=== PATIENT | female | born 1985 | race African-American/Black ===

== ENCOUNTER 2016-07-12 20:54 | Inpatient (IN) | payer MEDICARE ==
[~2016-07-12] VITALS: Ht 170.2 cm; Wt 56.4 kg
[~2016-07-12 20:54] MED LIST: ARIP30 PO; HALO10 PO; TRIH5 PO
[2016-07-12 20:55] VITALS: BP 130/72; PULSE 104; RESP 16; TEMP 97.9; O2SAT 99
[2016-07-12 23:45] LABS: AUTOMATED NEUTROPHIL # 6.1 TH/MM3 (1.8-7.7); BASOPHIL # 0.1 TH/MM3 (0-0.2); BASOPHIL % 0.6 % (0.0-2.0); EOSINOPHIL # 0.1 TH/MM3 (0-0.4); EOSINOPHIL % 1.3 % (0.0-4.0); HEMATOCRIT 41.4 % (35.0-46.0); HEMO FLAGS DIFF FINAL; LYMPH % 18.1 % (9.0-44.0); LYMPHOCYTE # 1.6 TH/MM3 (1.0-4.8); MEAN CELL VOLUME 86.9 FL (80.0-100.0); MEAN CORPUSCULAR HEMOGLOBIN 28.5 PG (27.0-34.0); MEAN CORPUSCULAR HGB CONC 32.8 % (32.0-36.0); MONO % 10.7 % (0.0-8.0); NEUT % 69.3 % (16.0-70.0); PLATELET COUNT 288 TH/MM3 (150-450); RED BLOOD COUNT 4.76 MIL/MM3 (4.00-5.30); RED CELL DISTRIBUTION WIDTH 13.4 % (11.6-17.2); WHITE BLOOD COUNT 8.9 TH/MM3 (4.0-11.0)
--- NOTE | 2016-07-12 23:53 | PD ---
HPI Chief Complaint: Psychiatric Symptoms Time Seen by Provider: 23:47 Travel History International Travel<30 days: No Contact w/Intl Traveler<30days: No Traveled to known affect area: No History of Present Illness HPI 31-year-old black female presents to emergency department on a voluntary basis for psychological evaluation. Per the nursing staff family member brought the patient in because they're concerned that she is decompensating. She has a long -standing history of schizophrenia. The family was concerned because she was talking to her parents in the living room who have been for some time now. The patient has been more agitated and combative at home. The patient here states that she is compliant with her medications. She denies any medical complaints. She is a poor historian and a good history is unobtainable. Patient denies any suicidal homicidal ideation. She denies any drugs or toxic ingestions. The patient states that she has had hallucinations in the past but she is not having any currently. PFSH Past Medical History Bipolar Disorder: Yes Cardiovascular Problems: No (PER BROTHER) Diminished Hearing: No Gastrointestinal Disorders: No (PER BROTHER) Genitourinary: No (PER BROTHER ) Musculoskeletal: No (PER BROTHER) Neurologic: No (PER BROTHER) Reproductive: No (PER BROTHER) Respiratory: No (PER BROTHER) Schizophrenia: Yes Tetanus Vaccination: Unknown : 0 Para: 0 Past Surgical History Surgical History: Unable to Obtain Other Surgery: No (PER BROTHER) Social History Alcohol Use: No Tobacco Use: No Substance Use: No Allergies-Medications (Allergen,Severity, Reaction): Coded Allergies: No Known Allergies (Verified , 07/12/16) Reported Meds & Prescriptions Reported Meds & Active Scripts Active Reported Haldol (Haloperidol) 10 Mg Tab 10 Mg PO BID Abilify (Aripiprazole) 30 Mg Tab 30 Mg PO HS Artane 5 Mg Tab (Trihexyphenidyl Hcl) 5 Mg Tab 5 Mg PO BID Review of Systems ROS Limitations: Poor Historian Except as stated in HPI: all other systems reviewed are Neg Psychiatric: Positive: Disorder of Thought, No: Anxiety, Depression, Suicidal Ideations, Mood Disorder, Substance Abuse, Homicidal Ideation Physical Exam Narrative GENERAL: Well-nourished, well-developed patient. SKIN: Warm and dry. HEAD: Normocephalic and atraumatic. EYES: No scleral icterus. No injection or drainage. ENT: No nasal drainage noted. Mucous membranes pink. Airway patent. NECK: Supple, trachea midline. Moves head freely without obvious discomfort. CARDIOVASCULAR: Regular rate and rhythm without murmurs, gallops, or rubs. RESPIRATORY: Breath sounds equal bilaterally. No accessory muscle use. GASTROINTESTINAL: Abdomen soft, non-tender, nondistended. EXTREMITIES: No cyanosis or edema. BACK: Nontender without obvious deformity. No CVA tenderness. NEURO: Patient is alert and oriented. no sensorimotor deficits. Nonfocal. Somewhat slurred and mumbled speech. PSYCH: The patient responds slowly. Her speech is somewhat slurred. The patient does appear to be responding to some internal stimuli. Impaired judgment. Data Data Last Documented VS Vital Signs Date Time Temp Pulse Resp B/P Pulse Ox O2 Delivery O2 Flow Rate FiO2 07/12/16 20:55 97.9 104 16 130/72 99 Orders Complete Blood Count With Diff (07/12/16 22:55) Comprehensive Metabolic Panel (07/12/16 22:55) Ed Urine Pregnancytest Poc (07/12/16 22:55) Psych Screen (07/12/16 22:55) Drug Screen, Random Urine (07/12/16 22:55) Alcohol (Ethanol) (07/12/16 22:55) Salicylates (Aspirin) (07/12/16 22:55) Tylenol (Acetaminophen) (07/12/16 22:55) Labs Laboratory Tests Test 07/12/16 23:20 White Blood Count 8.9 TH/MM3 Red Blood Count 4.76 MIL/MM3 Hemoglobin 13.6 GM/DL Hematocrit 41.4 % Mean Corpuscular Volume 86.9 FL Mean Corpuscular Hemoglobin 28.5 PG Mean Corpuscular Hemoglobin 32.8 % Concent Red Cell Distribution Width 13.4 % Platelet Count 288 TH/MM3 Mean Platelet Volume 9.3 FL Neutrophils (%) (Auto) 69.3 % Lymphocytes (%) (Auto) 18.1 % Monocytes (%) (Auto) 10.7 % Eosinophils (%) (Auto) 1.3 % Basophils (%) (Auto) 0.6 % Neutrophils # (Auto) 6.1 TH/MM3 Lymphocytes # (Auto) 1.6 TH/MM3 Monocytes # (Auto) 0.9 TH/MM3 Eosinophils # (Auto) 0.1 TH/MM3 Basophils # (Auto) 0.1 TH/MM3 CBC Comment DIFF FINAL Differential Comment MDM Medical Decision Making Medical Screen Exam Complete: Yes Emergency Medical Condition: Yes Medical Record Reviewed: Yes Differential Diagnosis MDM: High Differential diagnoses: Schizophrenia, schizoaffective disorder, bipolar, anxiety, depression, adjustment reaction, mood disorder NOS, ODD, depressive disorder NOS, dementia, dementia with agitation, psychosis NOS, substance induced mood disorder, intermittent explosive disorder, Asperger syndrome, infection,electrolyte abnormality, malingering. Narrative Course Mental health screening discussed with the patient. Psychiatric screen ordered. The patient is been medically cleared. This schizophrenia Diagnosis Primary Impression: Schizophrenia Condition: Stable [place] Jul 12, 2016 23:52
[2016-07-12 23:55] LABS: ANION GAP 9 MEQ/L (5-15)
[2016-07-12] MEDS ORDERED: TRIH5TAB2 PO (23:55)
[2016-07-12] MEDS ORDERED: HALO10TA PO (23:55)
[2016-07-12] MEDS ORDERED: ABIL30TA2 PO (23:55)
[2016-07-12 23:58] LABS: ALKALINE PHOSPHATASE 95 U/L (45-117); ALT (GPT) 20 U/L (10-53); AST (GOT) 15 U/L (15-37); BLOOD UREA NITROGEN 16 MG/DL (7-18); CHLORIDE 103 MEQ/L (98-107); GLOMERULAR FILTRATION RATE 64 ML/MIN (>89); POTASSIUM 3.7 MEQ/L (3.5-5.1); SODIUM (NA) 140 MEQ/L (136-145); TOTAL BILIRUBIN ADULT 0.2 MG/DL (0.2-1.0)
[2016-07-13 00:01] LABS: ACETAMINOPHEN LESS THAN 2.0 MCG/ML (10.0-30.0)
[2016-07-13 00:57] LABS: AMPHETAMINE, URINE NEG (NEG); BARBITURATES, URINE NEG (NEG); COCAINE, URINE NEG (NEG)
[2016-07-13] MEDS ORDERED: LORazepam 2 MG/ML VIAL - age > 65 yrs IM PRN (02:00)
[2016-07-13] MEDS ORDERED: ALUMINUM/MAGNESIUM/SIMETH 30 ML CUP PO PRN ×2 (02:00→14:00)
[2016-07-13] MEDS ORDERED: diphenhydrAMINE HCL 50 MG CAP - HS PRN PO (02:00)
[2016-07-13] MEDS ORDERED: hydrOXYzine HCL 50 MG TAB PO PRN (02:00)
[2016-07-13] MEDS ORDERED: ACETAMINOPHEN 325 MG TAB PO PRN ×2 (02:00→14:00)
[2016-07-13] MEDS ORDERED: diphenhydrAMINE HCL 50 MG/ML VIAL - HS PRN IM (02:00)
[2016-07-13] MEDS ORDERED: MAGNESIUM HYDROXIDE SUSP 30 ML CUP PO PRN ×2 (02:00→14:00)
[2016-07-13] MEDS ORDERED: LORazepam 0.5 MG TAB age > 65 yrs PO PRN (02:00)
[2016-07-13 02:23] VITALS: BP 106/57; PULSE 104; RESP 18; O2SAT 97
[2016-07-13 03:30] VITALS: BP 119/58; PULSE 112; RESP 16; TEMP 98.2; O2SAT 99
[2016-07-13 06:07] VITALS: BP 119/58; PULSE 112; RESP 16; TEMP 98.2; O2SAT 99
[2016-07-13] MEDS: HALOPERIDOL 10 MG TAB PO SCH ×2 (08:46→21:00)
[2016-07-13] MEDS: TRIHEXYPHENIDYL HCL 5 MG TAB PO SCH ×2 (09:05→21:56)
--- NOTE | 2016-07-13 14:32 | HHI.HP ---
Provisional Diagnosis Admission Date Jul 13, 2016 at 01:39 [place] I. 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 Express and informed consent means consent voluntarily given in writing, by a competent person, after sufficient explanation and disclosure of the subject matter involved to enable the person to make a knowing and willful decision without any element of force, fraud, deceit, duress, or other form of constraint or coercion. This person is 18 years of age or older, is not now known to be incompetent to consent to treatment with a guardian advocate, and does not have a health care surrogate or proxy currently making medical treatment decisions. I have found this person to be one of the following: [] Competent to provide express and informed consent, as defined above, for voluntary admission to this facility and is competent to provide express and informed consent for treatment. He/she has the consistent capacity to make well reasoned, willful, and knowing decisions concerning his or her medical or mental health treatment. The person fully and consistently understands the purpose of the admission for examination/placement and is fully capable of personally exercising all rights assured [place] [x] Incompetent to provide express and informed consent to voluntary admission, and this is incompetent to provide express and informed consent to treatment. The person must be transferred to involuntary status and a petition for a guardian advocate filed with the Circuit Court. [] Refusing to provide express and informed consent to voluntary admission but is competent to provide express and informed consent for treatment. The person must be discharged or transferred to involuntary status. Form shall be completed within 24 hours of a person's arrival at the receiving facility and filed in the clinical record of each person: 1. Admitted on a voluntary basis 2. Permitted to provide express and informed consent to his/her own treatment 3. Allowed to transfer from involuntary to voluntary status 4. Prior to permitting a person to consent to his or her own treatment after having been previously found incompetent to consent to treatment. History of Present Illness Capacity: Lacks Capacity HPI Patient is a 31-year-old Afro-Panamanian female comes her voluntarily being brought in by her family with a history of showing increased disorganization noncompliance medication talking to her mother and father being more aggressive from a house. Patient seen screened in the ED urine toxicology negative. Prior to my seeing patient she was admitted on a voluntary basis. However patient seen by me with nurse Catalan. Patient is a long history of contact with the psychiatric unit here. She is been clearing of diagnosis of schizophrenia and mental retardation. At the present time patient was pacing in her room with nurse Alayna and myself present. Markedly disorganized anxious attitude initially responses being markedly delayed brief concrete childlike. She is stating that she is showing multiple voices in her head causing a significant anxiety. When they attempted to speak about her mood and asked her sister is suicidal she started crying nodding her head. It appears she is still grieving the of her grandmother with of the past few years. She states she has drunk beer in the past but no hard liquor she denies other drug use. She states she's never been abused in the past. In any event at the present time patient does meet criteria for involuntary psychiatric hospitalization under the [place] act. Also feel she does not have capacity to make decisions concerning the admission or concerning her treatment thus I'll ask for healthcare surrogate and a guardian advocate nursing staff attempted to call patient's home [place] no response yet from her brother. Will continue medications to the med reconciliation Review of Systems ROS Limitations: Clinical Condition, Other (patient intellectually challenged) Past Psych History Psychological trauma history Patient denies Violence risk - others (6 mos) Patient is been progressive and angry towards brother Violence risk - self (6 mos) Patient is vague suicidal ideation perhaps related to the increased auditory hallucinations and her sadness over the [place] grandmother Substance Abuse History Drugs/Alcohol past 12 months His vague history of perhaps some use of beer Past Family Social History Coded Allergies: No Known Allergies (Verified , 07/12/16) Past Medical History Patient medically cleared ED Reported Medications Trihexyphenidyl 5 Mg Tab5 Mg PO BID #60 TAB Ref 0 07/12/16 Haloperidol 10 Mg Tab10 Mg PO BID Ref 0 07/12/16 Aripiprazole (Abilify)30 Mg Tab30 Mg PO HS #30 TAB Ref 0 07/12/16 Discontinued Reported Medications Haloperidol (Haldol)10 Mg Tab10 Mg PO BID #60 TAB 07/06/13 Aripiprazole (Abilify)30 Mg Tab30 Mg PO HS #30 TAB 07/06/13 Trihexyphenidyl Hcl (Artane 5 Mg Tab)5 Mg Tab5 Mg PO BID #60 TAB 07/06/13 Current Medications Medications (Trade) Dose Ordered Sig/Daquan Route Start Time Stop Time Status Last Admin (Ativan) 0.5 mg Q12H PRN PO 07/13/16 02:00 (Ativan Inj) 0.5 mg Q12H PRN IM 07/13/16 02:00 (Atarax) 50 mg Q6H PRN PO 07/13/16 02:00 (Benadryl) 50 mg HS PRN PO 07/13/16 02:00 (Benadryl Inj) 50 mg HS PRN IM 07/13/16 02:00 (Tylenol) 650 mg Q4H PRN PO 07/13/16 02:00 (Milk Of Magnesia Liq) 30 ml DAILY PRN PO 07/13/16 02:00 (Mag-Al Plus Susp Liq) 30 ml Q6H PRN PO 07/13/16 02:00 (Abilify) 30 mg HS PO 07/13/16 21:00 (Haldol) 10 mg BID PO 07/13/16 09:00 (Artane) 5 mg BID PO 07/13/16 09:00 07/13/16 09:05 Family History Both parents are , patient lives with brother unknown if there is history of mental health history or addiction history in family Social History Patient lives with brother Patient's Strengths (min. 2) Patient able to access healthcare calm cooperative Physical Exam Patient seen screened in ED exam reviewed and agreed with, vital signs blood pressure 119/58 pulse 112 respirations 16 Vital Signs Vital Signs Date Time Temp Pulse Resp B/P Pulse Ox O2 Delivery O2 Flow Rate FiO2 07/13/16 06:07 98.2 112 16 119/58 99 07/13/16 02:23 Room Air I/O 07/12/16 07/12/16 07/13/16 08:00 16:00 00:00 Intake Total 100 ml Balance 100 ml Mental Status Examination Alert anxious thin slender Afro-Panamanian female pacing her room nurse Alayna present with me throughout session. Patient markedly agitated tearful labile responses very brief childlike and disorganized complaining of increased auditory hallucinations Appearance Somewhat disheveled Speech: Hesitant, Slow, Stuttering Orientation: Person Memory: Impaired (describe) Thought Process: Other (markedly disorganized) Thought Content: Paranoid Hallucination Type: Auditory Attention and Concentration: Easily Distracted Suicidal Ideation: Yes Previous Suicide Attempts: No (unknown at this time) Homicidal Ideation: No Previous Homicide Attempts: No Insight: Poor Judgement: Poor Affect: Other (increase range and intensity) Mood: Sad, Anxious Motor Activity: Normal gait (pacing) Assessment & Plan Problem List: (1) 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 Will have counselor attempt to reach patient's brother Discharge Planning To be determined Request HC Surrog/Guard Advoc?: Yes Juvenal Mccallum MD Jul 13, 2016 14:32
[2016-07-13 17:19] VITALS: BP 101/67; PULSE 81; RESP 18; TEMP 98.6; O2SAT 98
[2016-07-13] MEDS ORDERED: HALOPERIDOL 10 MG TAB PO SCH (21:00)
[2016-07-13] MEDS ORDERED: ARIPiprazole 30 MG TAB PO SCH ×2 (21:00)
[2016-07-13] MEDS ORDERED: TRIHEXYPHENIDYL HCL 5 MG TAB PO SCH (21:00)
[2016-07-14 06:13] VITALS: BP 119/70; PULSE 80; RESP 18; TEMP 99.8; O2SAT 99
[2016-07-14 08:22] LABS: HDL CHOLESTEROL 74.9 MG/DL (40.0-60.0); LDL CHOLESTEROL 65 MG/DL (0-99)
[2016-07-14] MEDS: TRIHEXYPHENIDYL HCL 5 MG TAB PO SCH ×2 (08:42→20:12)
--- NOTE | 2016-07-14 11:04 | PD.CONS ---
Provisional Diagnosis Admission Date Jul 13, 2016 at 01:39 [place] I. 1. Schizophrenia, disorganized type [place] II. 1. Intellectual disability [place] V. GAF is 30 presently History of Present Illness Service Psychiatry Consult Requested By Dr. Mccallum Reason for Consult Second opinion Primary Care Physician No Primary Care Physician HPI From Dr. Mccallum's H&P: Patient is a 31-year-old Afro-[place] female comes her voluntarily being brought in by her family with a history of showing increased disorganization noncompliance medication talking to her mother and father being more aggressive from a house. Patient seen screened in the ED urine toxicology negative. Prior to my seeing patient she was admitted on a voluntary basis. However patient seen by me with nurse Catalan. Patient is a long history of contact with the psychiatric unit here. She is been clearing of diagnosis of schizophrenia and mental retardation. At the present time patient was pacing in her room with nurse Catalan and myself present. Markedly disorganized anxious attitude initially responses being markedly delayed brief concrete childlike. She is stating that she is showing multiple voices in her head causing a significant anxiety. When they attempted to speak about her mood and asked her sister is suicidal she started crying nodding her head. It appears she is still grieving the of her grandmother with of the past few years. She states she has drunk beer in the past but no hard liquor she denies other drug use. She states she's never been abused in the past. In any event at the present time patient does meet criteria for involuntary psychiatric hospitalization under the [place] act. Also feel she does not have capacity to make decisions concerning the admission or concerning her treatment thus I'll ask for healthcare surrogate and a guardian advocate nursing staff attempted to call patient's home [place] no response yet from her brother. Will continue medications to the med reconciliation On my examination today: Patient seen and examined. Chart reviewed. Case d/w RN. On my examination today, patient presents as fairly disorganized. She is childlike, and I note that she carries an intellectual disability diagnosis. She says that she has come into the hospital for "fighting," but provides no more detail than this. She admits to [facility] and says "I been hearing it bad." She appears internally preoccupied. Mood is fair. She does not verbalize any SI or HI. Interview is somewhat limited, I suspect because of a combination of thought disorganization and intellectual disability. Past Psych history: Patient admits to a history of prior psychiatric hospitalizations, and I note she was last here in 05/2013. She denies a history of suicide attempts. Family History: Patient denies. Chem Dep History: Patient denies any abuse of drugs or alcohol. Social History: Patient reports that she lives alone. She has "1 year" of schooling. She is unmarried and has 1 son. She denies any or legal history. Review of Systems ROS Limitations: Poor Historian Other No reported physical complaints. Past Family Social History Coded Allergies: No Known Allergies (Verified , 07/12/16) Past Medical History See EMR Reported Medications Trihexyphenidyl 5 Mg Tab5 Mg PO BID #60 TAB Ref 0 07/12/16 Haloperidol 10 Mg Tab10 Mg PO BID Ref 0 07/12/16 Aripiprazole (Abilify)30 Mg Tab30 Mg PO HS #30 TAB Ref 0 07/12/16 Discontinued Reported Medications Haloperidol (Haldol)10 Mg Tab10 Mg PO BID #60 TAB 07/06/13 Aripiprazole (Abilify)30 Mg Tab30 Mg PO HS #30 TAB 07/06/13 Trihexyphenidyl Hcl (Artane 5 Mg Tab)5 Mg Tab5 Mg PO BID #60 TAB 07/06/13 Current Medications Medications (Trade) Dose Ordered Sig/Daquan Route Start Time Stop Time Status Last Admin (Ativan) 0.5 mg Q12H PRN PO 07/13/16 02:00 Hold (Ativan Inj) 0.5 mg Q12H PRN IM 07/13/16 02:00 Hold (Atarax) 50 mg Q6H PRN PO 07/13/16 02:00 Hold (Benadryl) 50 mg HS PRN PO 07/13/16 02:00 Hold (Benadryl Inj) 50 mg HS PRN IM 07/13/16 02:00 Hold (Tylenol) 650 mg Q4H PRN PO 07/13/16 02:00 07/14/16 08:44 (Milk Of Magnesia Liq) 30 ml DAILY PRN PO 07/13/16 02:00 (Mag-Al Plus Susp Liq) 30 ml Q6H PRN PO 07/13/16 02:00 (Abilify) 30 mg HS PO 07/13/16 21:00 Hold (Haldol) 10 mg BID PO 07/13/16 09:00 Hold (Artane) 5 mg BID PO 07/13/16 09:00 07/14/16 08:42 Family History See above Social History See above Patient's Strengths (min. 2) In a monitored setting. Verbally fluent. Physical Exam PE completed by ED provider. On my examination today, patient is in no acute physical distress. No abnormal motor movements noted. Labs and vital signs reviewed: Vital Signs Vital Signs Date Time Temp Pulse Resp B/P Pulse Ox O2 Delivery O2 Flow Rate FiO2 07/14/16 06:13 99.8 80 18 119/70 99 07/13/16 02:23 Room Air Lab Results Item Value Date Time White Blood Count 8.9 TH/MM3 07/12/160 Hemoglobin 13.6 GM/DL 07/12/16 2320 Platelet Count 288 TH/MM3 07/12/16 2320 Sodium Level 140 MEQ/L 07/12/16 2320 Potassium Level 3.7 MEQ/L 07/12/16 2320 Chloride Level 103 MEQ/L 07/12/16 2320 Carbon Dioxide Level 28.0 MEQ/L 07/12/16 2320 Blood Urea Nitrogen 16 MG/DL 07/12/16 2320 Creatinine 1.19 MG/DL H 07/12/16 2320 Aspartate Amino Transf (AST/SGOT) 15 U/L 07/12/16 2320 Alanine Aminotransferase (ALT/SGPT) 20 U/L 07/12/16 2320 Alkaline Phosphatase 95 U/L 07/12/16 2320 Tox and EtOH negative. 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 Mccallum that the patient meets criteria for involuntary psychiatric hospitalization under the [place] Act. I have completed the second opinion paperwork. Further care as per Dr. Mccallum. Thank you very much for this consultation. Signing off. Request HC Surrog/Guard Advoc?: Yes Harshad Esparza MD Jul 14, 2016 11:04
--- NOTE | 2016-07-14 13:32 | HHI.PYPN ---
Subjective Remarks Patient discussed with treatment team including diagnosis medication management , discharge recommendations, and placement. Chart reviewed. Patient then seen in day room with nurse Evelyne. Patient continues to respond to internal stimuli though she states the voices are diminished is noticed by me that she continues to talk herself and also gesture. There is been significant difficulty at the present time also trying to reach patient's family to discuss this. If we are not able to reach them by tomorrow we need to perhaps a law enforcement to assure there safety and notification. So far we have been unable to gain permission to treat this lady. She continues to wander the unit somewhat disorganized, her responses still childlike acknowledging the auditory hallucinations. She also continues somewhat vigilant with her surroundings. Though she does denies suicidality at this time. Review of Systems ROS Limitations: Clinical Condition, Altered Mental Status Except as stated in HPI: all other systems reviewed are Neg Objective Alert: Yes [place]: Person Mood: Agitated, Anxious, Calm Affect: Labile, Restricted Memory Intact: Comment (very poor) Hallucinations: Auditory Delusions: Yes Delusion Type: Paranoid Suicidal: Ideation (denies though this still needs to be intrusive thoughts related to this by her auditory hallucinations) Homicidal: Ideation (denies) Insight/Judgement Very poor Labs Test 07/14/16 06:59 Triglycerides Level 38 MG/DL Cholesterol Level 147 MG/DL LDL Cholesterol 65 MG/DL HDL Cholesterol 74.9 MG/DL Cholesterol/HDL Ratio 1.96 RATIO Vitals/IOs Vital Signs Date Time Temp Pulse Resp B/P Pulse Ox O2 Delivery O2 Flow Rate FiO2 07/14/16 06:13 99.8 80 18 119/70 99 07/13/16 02:23 Room Air Assessment & Plan Problem List: (1) 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 Unable to start schedule medication until permission for healthcare surrogate/guardian advocate Justification for Cont. Inpt. At this time patient will decompensate then placed in the lower level of care Discharge Planning To be determined Request HC Surrog/Guard Advoc?: Yes Juvenal Mccallum MD Jul 14, 2016 13:32
[2016-07-14 17:13] LABS: HEMOGLOBIN A1a 1.1 %; HEMOGLOBIN A1b 0.9 %; HEMOGLOBIN Ao 85.3 %; HEMOGLOBIN F 1.1 %; HEMOGLOBIN LA1C 1.9 %; HEMOGLOBIN P3 3.8 %
[2016-07-14 19:27] VITALS: BP 124/73; PULSE 85; RESP 18; TEMP 98.2; O2SAT 97
[2016-07-15 06:09] VITALS: BP 107/68; PULSE 85; RESP 16; TEMP 97.7; O2SAT 96
[2016-07-15] MEDS: TRIHEXYPHENIDYL HCL 5 MG TAB PO SCH ×2 (09:41→20:14)
--- NOTE | 2016-07-15 13:22 | HHI.PYPN ---
Subjective Remarks Patient seen in day room with floor staff. Patient calm pleasant acknowledges continued auditory hallucinations though was somewhat less threatening nature though she still has vague suicidal ideation. Patient still remains sad though with slightly improved eye contact. It appears staff is continuing to have difficulty contacting patient's family. If they cannot contact them today with suggested they call law enforcement to make a wellness check on that address Review of Systems Except as stated in HPI: all other systems reviewed are Neg Objective Alert: Yes [place]: Person Mood: Agitated, Anxious, Calm Affect: Labile, Restricted Memory Intact: Comment (very poor) Hallucinations: Auditory Delusions: Yes Delusion Type: Paranoid Suicidal: Ideation (denies though this still needs to be intrusive thoughts related to this by her auditory hallucinations) Homicidal: Ideation (denies) Insight/Judgement Very poor Vitals/IOs Vital Signs Date Time Temp Pulse Resp B/P Pulse Ox O2 Delivery O2 Flow Rate FiO2 07/15/16 06:09 97.7 85 16 107/68 96 07/13/16 02:23 Room Air Intake and Output 07/14/16 07/14/16 07/15/16 08:00 16:00 00:00 Intake Total 240 ml 360 ml Balance 240 ml 360 ml Assessment & Plan Problem List: (1) 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 Will have counselor continue to attempt to contact patient's family, if they're unable to do that through today suggest counselor contact law enforcement to do wellness check at that location Justification for Cont. Inpt. At this time patient will decompensate then placed in the lower level of care Discharge Planning To be determined Request HC Surrog/Guard Advoc?: Yes Juvenal Mccallum MD Jul 15, 2016 13:22
[2016-07-15] MEDS ORDERED: LORazepam 2 MG/ML VIAL - age > 65 yrs IM PRN (15:45)
[2016-07-15] MEDS ORDERED: hydrOXYzine HCL 50 MG TAB PO PRN (15:45)
[2016-07-15] MEDS ORDERED: diphenhydrAMINE HCL 50 MG/ML VIAL - HS PRN IM (15:45)
[2016-07-15 18:55] VITALS: BP 104/73; PULSE 70; RESP 20; TEMP 97.8; O2SAT 100
[2016-07-15] MEDS: HALOPERIDOL 10 MG TAB PO SCH (20:14)
[2016-07-15] MEDS: ARIPiprazole 30 MG TAB PO SCH (20:14)
[2016-07-16 06:22] VITALS: BP 108/76; PULSE 72; RESP 18; TEMP 98; O2SAT 99
[2016-07-16] MEDS: HALOPERIDOL 10 MG TAB PO SCH ×2 (09:33→21:18)
[2016-07-16] MEDS: TRIHEXYPHENIDYL HCL 5 MG TAB PO SCH ×2 (09:33→21:18)
--- NOTE | 2016-07-16 13:25 | HHI.PYPN ---
Subjective Remarks Patient seen in dayroom with forceps, patient calm cooperative with me, continues to verify auditory hallucinations though somewhat softer, compliant medications, somewhat vague about continued suicidality though she does show some increase affect attempting to talk about her grandparents and parents. For now continue treatment Review of Systems Except as stated in HPI: all other systems reviewed are Neg Objective Alert: Yes [place]: Person Mood: Agitated, Anxious, Calm Affect: Labile, Restricted Memory Intact: Comment (very poor) Hallucinations: Auditory Delusions: Yes Delusion Type: Paranoid (somewhat decreased) Suicidal: Ideation (denies though this still needs to be intrusive thoughts related to this by her auditory hallucinations) Homicidal: Ideation (denies) Insight/Judgement Very poor Vitals/IOs Vital Signs Date Time Temp Pulse Resp B/P Pulse Ox O2 Delivery O2 Flow Rate FiO2 07/16/16 06:22 98.0 72 18 108/76 99 07/13/16 02:23 Room Air Intake and Output 07/15/16 07/15/16 07/16/16 08:00 16:00 00:00 Intake Total 360 ml Balance 360 ml Assessment & Plan Problem List: (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 Compliant medications. For now continue treatment Justification for Cont. Inpt. At this time patient will decompensate if placed in a lower level of care Discharge Planning To be determined Request HC Surrog/Guard Advoc?: Yes Juvenal Mccallum MD Jul 16, 2016 13:25
[2016-07-16 19:49] VITALS: BP 112/72; PULSE 108; RESP 18; TEMP 98.1; O2SAT 99
[2016-07-16] MEDS: ARIPiprazole 30 MG TAB PO SCH (21:00)
[2016-07-17] MEDS: HALOPERIDOL 10 MG TAB PO SCH ×2 (08:27→21:30)
[2016-07-17] MEDS: TRIHEXYPHENIDYL HCL 5 MG TAB PO SCH ×2 (08:27→21:30)
--- NOTE | 2016-07-17 14:57 | HHI.PYPN ---
Subjective Remarks Patient was seen and case discussed with nursing. Patient is disorganized and delayed. Not giving appropriate responses to questions. She is alert and oriented 2. Largely seclusive to self. She denies auditory hallucinations but she may not be understanding the questions. Denies suicidal ideations intent or plan Objective Alert: Yes [place]: Person, Place Mood: Anxious, Depressed Affect: Labile, Blunted Memory Intact: Comment (very poor) Hallucinations: Auditory (denies today) Delusions: Yes Delusion Type: Paranoid (somewhat decreased) Suicidal: Ideation (denies though this still needs to be intrusive thoughts related to this by her auditory hallucinations) Homicidal: Ideation (denies) Insight/Judgement Poor Vitals/IOs Vital Signs Date Time Temp Pulse Resp B/P Pulse Ox O2 Delivery O2 Flow Rate FiO2 07/16/16 19:49 98.1 108 18 112/72 99 Assessment & Plan Problem List: (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 Inpt. Patient will decompensate in a less restrictive setting Request HC Surrog/Guard Advoc?: Yes Damian Sim DO Jul 17, 2016 14:57
[2016-07-17 17:45] VITALS: BP 126/63; PULSE 73; RESP 17; TEMP 98; O2SAT 98
[2016-07-17] MEDS: ARIPiprazole 30 MG TAB PO SCH (21:30)
[2016-07-17] MEDS: diphenhydrAMINE HCL 50 MG CAP - HS PRN PO (23:11)
[2016-07-18 06:20] VITALS: BP 96/54; PULSE 82; RESP 20; TEMP 98.6; O2SAT 99
[2016-07-18] MEDS: TRIHEXYPHENIDYL HCL 5 MG TAB PO SCH ×2 (09:09→20:36)
[2016-07-18] MEDS: HALOPERIDOL 10 MG TAB PO SCH ×2 (09:09→20:36)
--- NOTE | 2016-07-18 13:40 | HHI.PYPN ---
Subjective Remarks Patient was seen and case discussed with nursing. Patient remains acutely psychotic. She was seen talking to self and responding to internal stimuli. During the interview she is paranoid looking side to side. When asked about her voices she becomes mute showing evidence of thought blocking. 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 Inpt. Patient will decompensate in a less restrictive setting Request HC Surrog/Guard Advoc?: Yes Damian Sim DO Jul 18, 2016 13:40
[2016-07-18 16:50] VITALS: BP 102/61; PULSE 70; RESP 18; TEMP 98.2; O2SAT 100
[2016-07-18] MEDS: ARIPiprazole 30 MG TAB PO SCH (20:36)
[2016-07-18] MEDS: LORazepam 0.5 MG TAB age > 65 yrs PO PRN (23:36)
[2016-07-18] MEDS: diphenhydrAMINE HCL 50 MG CAP - HS PRN PO (23:36)
[2016-07-19 05:26] VITALS: BP 107/65; PULSE 99; RESP 16; TEMP 99.6; O2SAT 99
[2016-07-19] MEDS: TRIHEXYPHENIDYL HCL 5 MG TAB PO SCH ×2 (09:21→21:37)
[2016-07-19] MEDS: HALOPERIDOL 10 MG TAB PO SCH ×2 (09:21→21:37)
--- NOTE | 2016-07-19 15:03 | HHI.PYPN ---
Subjective Remarks Patient discussed with treatment team, chart reviewed, patient seen and unit. Patient showing some slight increase affect less discussion of the voices, does denies suicidality at this time. Will arrange to meet with patient's sister tomorrow for all possible to discuss further treatment discharge plans Review of Systems Except as stated in HPI: all other systems reviewed are Neg Objective Alert: Yes [place]: Person, Place Mood: Anxious, Oppositional Affect: Labile, Flat Memory Intact: Comment (poor) Hallucinations: Auditory (diminished today) Delusions: Yes Delusion Type: Paranoid (somewhat diminished) Suicidal: Ideation (denies, poor historian) Homicidal: Ideation (denies) Insight/Judgement Poor Vitals/IOs Vital Signs Date Time Temp Pulse Resp B/P Pulse Ox O2 Delivery O2 Flow Rate FiO2 07/19/16 05:26 99.6 99 16 107/65 99 Intake and Output 07/18/16 07/18/16 07/19/16 08:00 16:00 00:00 Intake Total 240 ml 240 ml Balance 240 ml 240 ml Assessment & Plan Problem List: (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 Inpt. At this time patient will decompensate if placed on the lower level of care Discharge Planning To be determined will attempt to meet with patient's sister tomorrow Request HC Surrog/Guard Advoc?: Yes Juvenal Mccallum MD Jul 19, 2016 15:03
[2016-07-19 16:54] VITALS: BP 93/68; PULSE 80; RESP 18; TEMP 97.6; O2SAT 100
[2016-07-19] MEDS: LORazepam 0.5 MG TAB age > 65 yrs PO PRN (17:55)
[2016-07-19] MEDS: ARIPiprazole 30 MG TAB PO SCH (21:37)
[2016-07-20 06:28] VITALS: BP 100/55; PULSE 85; RESP 18; TEMP 97.5; O2SAT 99
[2016-07-20] MEDS: HALOPERIDOL 10 MG TAB PO SCH (09:46)
[2016-07-20] MEDS: TRIHEXYPHENIDYL HCL 5 MG TAB PO SCH (09:46)
[2016-07-20] MEDS ORDERED: HALO10TA PO (09:52)
[2016-07-20] MEDS ORDERED: HYDR50TA94 PO (09:52)
[2016-07-20] MEDS ORDERED: TRIH5TAB2 PO (09:52)
[2016-07-20] MEDS ORDERED: ABIL30TA2 PO (09:52)
--- NOTE | 2016-07-20 10:03 | HHI.DS ---
Psychiatry Discharge Summary Inpatient Psychiatric care?: Yes Advance Directive: No Reason Not Provided: Due to Patient Condition Mental Health AdvanceDirective: No Health Care Proxy: Yes Admission Admission Date Jul 13, 2016 at 01:39 Admission Diagnosis: (1) Moderate mental retardation ICD Code: F71 (2) Disorganized schizophrenia ICD Code: F20.[address] Mccallum's H&P: Patient is a 31-year-old Afro-[place] female comes her voluntarily being brought in by her family with a history of showing increased disorganization noncompliance medication talking to her mother and father being more aggressive from a house. Patient seen screened in the ED urine toxicology negative. Prior to my seeing patient she was admitted on a voluntary basis. However patient seen by me with nurse Alayna. Patient is a long history of contact with the psychiatric unit here. She is been clearing of diagnosis of schizophrenia and mental retardation. At the present time patient was pacing in her room with nurse Alayna and myself present. Markedly disorganized anxious attitude initially responses being markedly delayed brief concrete childlike. She is stating that she is showing multiple voices in her head causing a significant anxiety. When they attempted to speak about her mood and asked her sister is suicidal she started crying nodding her head. It appears she is still grieving the of her grandmother with of the past few years. She states she has drunk beer in the past but no hard liquor she denies other drug use. She states she's never been abused in the past. In any event at the present time patient does meet criteria for involuntary psychiatric hospitalization under the [place] act. Also feel she does not have capacity to make decisions concerning the admission or concerning her treatment thus I'll ask for healthcare surrogate and a guardian advocate nursing staff attempted to call patient's home [place] no response yet from her brother. Will continue medications to the med reconciliation On my examination today: Patient seen and examined. Chart reviewed. Case d/w RN. On my examination today, patient presents as fairly disorganized. She is childlike, and I note that she carries an intellectual disability diagnosis. She says that she has come into the hospital for "fighting," but provides no more detail than this. She admits to [facility] and says "I been hearing it bad." She appears internally preoccupied. Mood is fair. She does not verbalize any SI or HI. Interview is somewhat limited, I suspect because of a combination of thought disorganization and intellectual disability. Past Psych history: Patient admits to a history of prior psychiatric hospitalizations, and I note she was last here in 05/2013. She denies a history of suicide attempts. Family History: Patient denies. Chem Dep History: Patient denies any abuse of drugs or alcohol. Social History: Patient reports that she lives alone. She has "1 year" of schooling. She is unmarried and has 1 son. She denies any or legal history. Tobacco Use In Past 30 Days: Cognitive Impairment Alcohol Use: 2-4 Times Per Month Hospital Course Patient's hospital course was fairly uneventful. There Is Episodes of Childlike Behavior, Episodes of Being Somewhat Stubborn. However Patient Is Overall Compliant with Medications, No Significant Behavioral Problems. Her Vague Auditory Hallucinations That She Complained of Slowly Resolved. She Denied Suicidality Homicidality or Voices or Visions. We Did Meet Today and Patient's Brother and [id number]. They Feel She Is Doing Better and Are Willing to Take Her Home Today to Follow-Up Outpatient [facility]. They Have Both Visited with the Patient and They Feel She Is Ready Now to Come Home. Thus Patient Is to Be Discharged Today. Rx 1 month. Results Blood Pressure 100 / 55 Vital Signs Date Time Temp Pulse Resp B/P Pulse Ox O2 Delivery O2 Flow Rate FiO2 07/20/16 06:28 97.5 85 18 100/55 99 And toxicology negative blood alcohol level negative Summary of Procedures None done Pending results at discharge: No Medications # of Antipsychotic meds at D/C: 2 Appropriate >1 Antipsych meds?: 2 (would suggest that outpatient clinician consider weaning off Haldol gradually and continue with the Abilify) Approp Antipsych med options 1 - Minimum of three failed multiple trials of monotherapy. 2 - Documented plan to taper to monotherapy due to previous use of multiple meds OR cross-taper in progress at D/C. 3 - Documentation of augmentation of Clozapine. 4 - Justification other than those listed in allowable values 1-3, document here : Discharge Discharge Date: Jul 20, 2016 Discharge Diagnosis: (1) Moderate mental retardation Diagnosis: Secondary ICD Code: F71 (2) Disorganized schizophrenia Diagnosis: Principal ICD Code: F20.1 Mental Status Exam at Disch Alert [place]ro[place] female sitting quietly in her room, she has normal active, mood euthymic to slightly increased range and intensity of her affect speech rate and rhythm are somewhat increased at times somewhat tangential and childlike it appears she still has some responses to internal stimuli, denies any visual hallucinations, no delusions noted. Insight and judgment is poor cognition is somewhat impaired. She is oriented to person place Pt Condition on Discharge: Stable Discharge Disposition: Discharge Home Discharge Instructions Diet Instructions: As Tolerated, No Restrictions Activities you can perform: Regular-No Restrictions Scheduled Appointment: [place] Act Appointment Date: Jul 26, 2016 Appointment Time: 7:30am Discharge Time > 30 minutes Discharge/Advance Care Plan Health Problems: (1) Disorganized schizophrenia (2) Moderate mental retardation Goals to promote your health * To prevent worsening of your condition and complications * To maintain your health at the optimal level Directions to meet your goals Take your medications as prescribed Follow your dietary instruction Follow activity as directed Keep your appointments as scheduled Take your immunizations and boosters as scheduled If your symptoms worsen call your PCP, if no PCP go to Urgent Care Center or Emergency Room For 15/11 questions related to your inpatient stay or results of tests pending at discharge, please contact Dr. Juvenal Mccallum at Smoking is Dangerous to Your Health. Avoid second hand smoking Juvenal Mccallum MD Jul 20, 2016 10:03
== END 2016-07-20 12:25 | disposition home or self-care (01) | DRG 885 ==
LOC: NEPJ 20:54 → NEDA 07-13 01:39 → H260 07-13 03:29
PROVIDERS: ADMIT Psychiatry & Neurology Psychiatry; ATTEND Psychiatry & Neurology Psychiatry
DX: F20.1 Disorganized schizophrenia (principal); F71 Moderate intellectual disabilities; Z91.19 Patient's noncompliance with other medical treatment and regimen
CPT/HCPCS: 80053; 80061; 80307; 83036; 84703; 85025; 99284; Q0163